=== PATIENT | male | born 2000 | race Two or more races ===

== ENCOUNTER 2022-05-14 21:57 | Emergency (ER) | payer MEDICAID ==
[~2022-05-14] VITALS: Ht 177.8 cm; Wt 87.6 kg
[2022-05-14 23:37] VITALS: BP 138/52
== END 2022-05-14 23:59 | disposition home or self-care (01) ==
LOC: ER 21:57
DX: S62.336A Displaced fracture of neck of fifth metacarpal bone, right hand, initial encounter for closed fracture (principal); W22.8XXA Striking against or struck by other objects, initial encounter; Y93.89 Activity, other specified; Y92.89 Other specified places as the place of occurrence of the external cause; Y99.8 Other external cause status
CPT/HCPCS: 29125; 73130